=== PATIENT | female | born 1990 ===

== ENCOUNTER 2018-05-06 02:45 | Inpatient (IN) | payer SELFPAY ==
[~2018-05-06] VITALS: Ht 152.4 cm; Wt 63.0 kg
[2018-05-06] MEDS ORDERED: RINGERS SOLUTION,LACTATED 1,000 ML IV PRN (03:28)
[2018-05-06] MEDS ORDERED: OXYTOCIN 30 UNITS/LACT RINGERS 500 ML IV ONE (03:28)
[2018-05-06] MEDS ORDERED: RINGERS SOLUTION,LACTATED 1,000 ML IV SCH (03:28)
[2018-05-06] MEDS ORDERED: FentaNYL CITRATE-PF 100 MCG/2 ML VIAL IVP PRN (03:30)
[2018-05-06] MEDS ORDERED: CITRIC ACID/SODIUM CITRATE 30 ML SOLUTION UDCUP PO PRN (03:30)
[2018-05-06] MEDS ORDERED: LIDOCAINE/PF 1% 30 ML VIAL INJ PRN (03:30)
[2018-05-06] MEDS ORDERED: METHYLERGONOVINE MALEATE 0.2 MG/ML VIAL IM PRN (03:30)
[2018-05-06] MEDS ORDERED: METOCLOPRAMIDE HCL 5 MG/ML 2 ML VIAL IVP PRN (03:30)
[2018-05-06 04:02] LABS: BASOPHILS % (AUTO) 0.6 % (0.0-2.0); EOSINOPHILS % (AUTO) 1.9 % (1.0-6.0); HEMOGLOBIN 12.4 g/dL (12.0-16.0); LYMPHOCYTES # (AUTO) 1.2 K/uL (1.0-4.8); LYMPHOCYTES % (AUTO) 12.1 % (22.0-44.0); MEAN CORPUSCULAR HEMOGLOBIN 29.7 pg (26.0-34.0); MEAN CORPUSCULAR HGB CONC 33.6 G/dL (31.0-37.0); MEAN CORPUSCULAR VOLUME 89 fL (80-100); MONOCYTES # (AUTO) 0.5 K/uL (0.1-1.0); MONOCYTES % (AUTO) 4.8 % (2.0-9.0); NEUTROPHILS # (AUTO) 8.2 K/uL (1.8-7.7); NEUTROPHILS % (AUTO) 80.6 % (40.0-70.0); PLATELET COUNT (AUTO)-OB 299 K/uL (150-450); RED BLOOD CELL COUNT(AUTO) 4.18 MIL/uL (4.00-5.20); RED CELL DISTRIBUTION WIDTH 14.7 % (11.5-14.5)
[2018-05-06 05:46] VITALS: BP 113/75
[2018-05-06] MEDS ORDERED: RINGERS SOLUTION,LACTATED 1,000 ML IV ONE (05:48)
[2018-05-06] MEDS ORDERED: GLYCERIN/WITCH HAZEL LEAF 40 PADS JAR TP PRN (06:00)
[2018-05-06] MEDS ORDERED: IBUPROFEN 600 MG TABLET PO PRN (06:00)
[2018-05-06] MEDS ORDERED: MEASLES/MUMPS/RUBELLA VACCINE, LIVE 0.5 ML/VIAL SQ ONE (06:00)
[2018-05-06] MEDS ORDERED: OxyCODONE HCL/ACETAMINOPHEN 5-325 MG TABLET PO PRN ×2 (06:00)
[2018-05-06] MEDS ORDERED: BENZOCAINE 20%/MENTHOL 56 GM SPRAY CANISTER TP PRN (06:00)
[2018-05-06] MEDS ORDERED: LANOLIN 7 GM OINTMENT TP PRN (06:00)
[2018-05-06] MEDS ORDERED: OXYGEN THERAPY IH SCH (08:00)
[2018-05-06] MEDS: MAGNESIUM HYDROXIDE SUSPENSION 30 ML UDCUP PO SCH ×2 (09:13→21:00)
[2018-05-06 15:42] LABS: RUBELLA SCREEN (IGG) IMMUNE (IMMUNE)
[2018-05-07] MEDS ORDERED: IBUP-2070 PO (10:17)
== END 2018-05-07 14:40 | disposition home or self-care (01) | DRG 807 ==
LOC: 4S 02:45 → OBSVTOIN 02:45
PROVIDERS: ADMIT Obstetrics & Gynecology; ATTEND Obstetrics & Gynecology
PROC: 10E0XZZ Delivery of Products of Conception, External Approach (ICD-10-PCS; principal; 2018-05-06)
PROC: 0KQM0ZZ Repair Perineum Muscle, Open Approach (ICD-10-PCS; 2018-05-06)
DX: O70.1 Second degree perineal laceration during delivery (principal); Z37.0 Single live birth; Z3A.39 39 weeks gestation of pregnancy
CPT/HCPCS: 86592; 86762; 86850; 86900; 86901; 87340; J2590; J3490